=== PATIENT | female | born 1935 | race Caucasian/White ===

== ENCOUNTER 2016-10-30 19:29 | Inpatient (IN) | payer BC ==
[~2016-10-30] VITALS: Ht 165.1 cm; Wt 85.5 kg
[~2016-10-30 19:29] MED LIST: ACETAMINOPHEN-1 EAC1 PO; ALLOPURINOL100 MG PO; AMLODIPINE BESY10 MG PO; APRESOLINE100 MG PO; ARTIFICIAL TEAR1510 BOTH EYES; BUMETANIDE1 MG PO; CEFDINIR300 MG PO; CELEBREX200 MG PO; COLCRYS0.6 MG PO; COSOPT EYE DROPS5 ML BOTH EYES; DUONEB 2.5-0.5 M3 ML AEROSOL; ERGOCALCIF50000 UNIT PO; GEMFIBROZIL600 MG PO; HYTRIN10 MG PO; LETROZOLE2.5 MG PO; LEVOFLOXACIN500 MG PO; LOSARTAN POTASS25 MG PO; LOSARTAN-HCTZ1 EAC1 PO; METFORMIN HCL1000 MG PO; OMNICEF300 MG PO; PANTOPRAZOLE SO40 MG PO; PREDNISONE10 MG PO; PROMETHAZINE-C120 ML PO; PROTONIX40 MG PO; SERTRALINE HCL50 MG PO; SYMBICORT60 INHALA1 IH; SYMBICORT60 INHALAT IH; SYNTHROID88 MCG PO; TYLENOL EXTRA500 MG PO
[2016-10-30 19:57] LABS: HEMATOCRIT 32.1 % (36.0-46.0); MCH 30.1 PG (29.0-34.0); MCHC 33.3 G/DL (30.0-36.0); MCV 90.4 FL (83-99); MEAN PLAT.VOLUME 9.5 uM^3 (9.5-12.4); PLATELET COUNT 335 K/uL (156-360); RBC DIS.WIDTH-CV 14.4 % (11.8-14.6); RBC DIS.WIDTH-SD 48.2 % (39-53); RED BLOOD COUNT 3.55 M/uL (3.80-5.20); WHITE BLOOD COUNT 19.2 K/uL (4.1-10.2)
[2016-10-30 20:12] LABS: CHLORIDE 91 mEq/L (99-109); POTASSIUM 3.6 mEq/L (3.7-5.4); SODIUM 137 mEq/L (136-147)
[2016-10-30 20:13] LABS: GLUCOSE 122 mg/dL (70-99)
[2016-10-30 20:15] LABS: ANION GAP 17 MEQ/L (2-14)
[2016-10-30 20:17] LABS: GFR ESTIMATE (CALCULATED) 46 mL/min/
[2016-10-30 20:19] LABS: UREA NITROGEN (BUN) 37 mg/dL (9-23)
[2016-10-30 20:33] LABS: TROP-I INTERPRETATION NEGATIVE; TROPONIN-I < 0.01 ng/mL (0.0-0.30)
[2016-10-30 21:35] LABS: TOTAL BILIRUBIN 0.5 mg/dL (0.0-1.0)
[2016-10-30 21:36] LABS: ALKALINE PHOSPHATASE 127 IU/L (3-129)
[2016-10-30 21:49] LABS: EOSINOPHIL (%) 0.1 % (0-5); HEMATOCRIT 31.8 % (36.0-46.0); IMMATURE GRANULOCYTE (%) 0.6 % (0.0-0.7); IMMATURE GRANULOCYTE COUNT 0.1 K/uL; INSTRUMENT ABS NEUTROPHIL CT 13.7 K/uL; LYMPHOCYTE COUNT 3.4 K/uL (1.0-2.8); MCH 30.3 PG (29.0-34.0); MCHC 33.3 G/DL (30.0-36.0); MCV 90.9 FL (83-99); MEAN PLAT.VOLUME 9.8 uM^3 (9.5-12.4); MONOCYTE (%) 9.4 % (3-12); MONOCYTE COUNT 1.8 K/uL (0-0.8); NEUTROPHIL (%) 71.9 % (45-76); NEUTROPHIL COUNT 13.7 K/uL (1.8-6.4); PLATELET COUNT 341 K/uL (156-360); RBC DIS.WIDTH-CV 14.4 % (11.8-14.6); RBC DIS.WIDTH-SD 47.5 % (39-53)
[2016-10-31] MEDS ORDERED: APRESOLINE50 MG PO (00:07)
[2016-10-31] MEDS ORDERED: TYLENOL WITH C1 EACH PO (00:08)
[2016-10-31] MEDS ORDERED: XELODA500 MG PO (00:13)
[2016-10-31] MEDS ORDERED: KLOR-CON M1010 MEQ PO (00:13)
[2016-10-31] MEDS ORDERED: BUMETANIDE2 MG PO (00:14)
[2016-10-31] MEDS ORDERED: INCRUSE ELLI62.5 MCG IH (00:15)
[2016-10-31] MEDS ORDERED: ALLOPURINOL300 MG PO (00:15)
[2016-10-31] MEDS ORDERED: EDARBI40 MG PO (00:15)
[2016-10-31] MEDS ORDERED: BYSTOLIC5 MG PO (00:15)
[2016-10-31 01:40] VITALS: BP 129/60
[2016-10-31 05:51] LABS: POINT-OF-CARE METER ID UU13113725
[2016-10-31 11:50] LABS: POINT-OF-CARE METER ID UU13113725
[2016-10-31 17:07] LABS: POINT-OF-CARE METER ID UU13113725
[2016-10-31 18:15] VITALS: BP 136/62
[2016-10-31 23:15] VITALS: BP 114/58
[2016-11-01 06:41] LABS: PROTHROMBIN TIME 11.4 SEC (10.2-12.9)
[2016-11-01 08:56] VITALS: BP 152/75
[2016-11-01 12:06] VITALS: BP 150/75
[2016-11-01 13:56] LABS: TYPE OF FLUID THORACENTESIS
[2016-11-01 14:24] LABS: BODY FLUID LDH 311 IU/L; BODY FLUID PROTEIN 3.7 G/DL
[2016-11-01 14:29] LABS: BODY FLUID EOSINOPHILS 0 % (0-25); BODY FLUID RBC'S 3000 /MM^3 (0-100); BODY FLUID WBC'S 384 /MM^3 (0-500); MONONUCLEAR WBC'S 94 %; POLYNUCLEAR WBC'S 6 % (0-25)
[2016-11-01 15:01] LABS: GLUCOSE 121 mg/dL (70-99); LACTATE DEHYDROGENASE 156 IU/L (20-246)
[2016-11-01 16:24] VITALS: BP 156/77
[2016-11-01 19:45] VITALS: BP 148/75
[2016-11-01 23:33] VITALS: BP 139/68
[2016-11-02 03:34] VITALS: BP 127/60
[2016-11-02 08:20] VITALS: BP 173/80
[2016-11-02 12:24] VITALS: BP 139/73
[2016-11-02 16:26] VITALS: BP 160/76
[2016-11-02 20:22] VITALS: BP 133/69
[2016-11-02 23:09] VITALS: BP 178/74
[2016-11-03 07:05] VITALS: BP 177/88
[2016-11-03 11:00] VITALS: BP 136/72
[2016-11-03 14:00] VITALS: BP 137/90
[2016-11-03 15:40] VITALS: BP 141/87
[2016-11-03 21:10] LABS: POINT-OF-CARE METER ID UU13113725
[2016-11-03 23:20] VITALS: BP 127/78
[2016-11-04 06:47] LABS: POINT-OF-CARE METER ID UU13113725
[2016-11-04 07:05] VITALS: BP 139/76
[2016-11-04 11:31] LABS: POINT-OF-CARE METER ID UU13113725
[2016-11-04 16:24] VITALS: BP 133/75
[2016-11-04 16:27] LABS: POINT-OF-CARE METER ID UU13113725
[2016-11-04 23:40] VITALS: BP 138/71
[2016-11-05 00:38] VITALS: BP 128/64
[2016-11-05 07:34] VITALS: BP 146/74
[2016-11-05 15:16] VITALS: BP 121/63
[2016-11-05 23:29] VITALS: BP 166/84
[2016-11-06 07:06] LABS: POINT-OF-CARE METER ID UU13113725
[2016-11-06 07:10] VITALS: BP 140/65
[2016-11-06 15:30] VITALS: BP 116/56
[2016-11-06 23:15] VITALS: BP 137/67
[2016-11-07 08:31] VITALS: BP 114/68
[2016-11-07 15:58] VITALS: BP 113/60
[2016-11-07 21:51] VITALS: BP 107/57
[2016-11-07 23:21] VITALS: BP 110/59
[2016-11-08 08:28] VITALS: BP 134/70
[2016-11-08 11:44] LABS: POINT-OF-CARE METER ID UU13113725
[2016-11-08 15:51] VITALS: BP 112/61
[2016-11-08 16:25] LABS: POINT-OF-CARE METER ID UU13113725
[2016-11-08 21:13] LABS: POINT-OF-CARE METER ID UU13113725
[2016-11-08 22:52] VITALS: BP 100/59
[2016-11-09 07:17] LABS: POINT-OF-CARE METER ID UU13113725
[2016-11-09 08:00] VITALS: BP 120/66
[2016-11-09 11:20] VITALS: BP 111/68
[2016-11-09 22:37] VITALS: BP 130/73
[2016-11-10 06:28] LABS: POINT-OF-CARE METER ID UU13113725
[2016-11-10 08:13] VITALS: BP 132/70
[2016-11-10 11:38] LABS: POINT-OF-CARE METER ID UU13113725
[2016-11-10 15:54] VITALS: BP 108/57
[2016-11-10 16:32] LABS: POINT-OF-CARE METER ID UU13113725
[2016-11-10 19:33] VITALS: BP 101/55
[2016-11-10 21:06] LABS: POINT-OF-CARE METER ID UU13113725
[2016-11-10 22:44] VITALS: BP 139/72
[2016-11-11 07:05] VITALS: BP 121/69
[2016-11-11 12:23] LABS: POINT-OF-CARE METER ID UU13113725
[2016-11-11 15:10] VITALS: BP 103/57
[2016-11-11 16:34] LABS: POINT-OF-CARE METER ID UU13113725
[2016-11-11 22:01] LABS: POINT-OF-CARE METER ID UU13113725
[2016-11-12 00:14] VITALS: BP 113/60
[2016-11-12 06:02] LABS: POINT-OF-CARE METER ID UU13113725
[2016-11-12 07:19] VITALS: BP 127/69
[2016-11-12 15:10] VITALS: BP 126/72
[2016-11-12 21:47] VITALS: BP 126/68
[2016-11-12 23:32] VITALS: BP 123/66
[2016-11-13 07:06] LABS: POINT-OF-CARE METER ID UU13113725
[2016-11-13 07:38] VITALS: BP 117/71
[2016-11-13 11:43] LABS: POINT-OF-CARE METER ID UU13113725
[2016-11-13] MEDS ORDERED: LIDOCAINE1 EACH TD (14:01)
[2016-11-13] MEDS ORDERED: NOVOLOG PE100 UNITS/ SC (14:01)
[2016-11-13] MEDS ORDERED: DUONEB 2.5-0.5 M3 ML AEROSOL (14:01)
[2016-11-13] MEDS ORDERED: CEFDINIR300 MG PO (14:01)
[2016-11-13] MEDS ORDERED: PLAVIX75 MG PO (14:01)
[2016-11-13] MEDS ORDERED: TRAMADOL HCL50 MG PO (14:01)
== END 2016-11-13 16:07 | DRG 180 ==
LOC: EME → EDBD 19:29 → EME 19:29 → 5EAST 23:54 → EDOF 23:54 → ENRESERV 10-31 00:14 → 5EAST 10-31 01:17
PROVIDERS: Emergency Medicine; Internal Medicine; Internal Medicine Pulmonary Disease
PROC: 0W9930Z Drainage of Right Pleural Cavity with Drainage Device, Percutaneous Approach (ICD-10-PCS; principal; 2016-11-03)
DX: C78.00 Secondary malignant neoplasm of unspecified lung (principal); J91.0 Malignant pleural effusion; J44.0 Chronic obstructive pulmonary disease with (acute) lower respiratory infection; C79.51 Secondary malignant neoplasm of bone; J18.9 Pneumonia, unspecified organism; I44.0 Atrioventricular block, first degree; E86.0 Dehydration; J44.1 Chronic obstructive pulmonary disease with (acute) exacerbation; E87.70 Fluid overload, unspecified; I44.1 Atrioventricular block, second degree; R19.7 Diarrhea, unspecified; R53.1 Weakness; K21.9 Gastro-esophageal reflux disease without esophagitis; C50.919 Malignant neoplasm of unspecified site of unspecified female breast; E11.9 Type 2 diabetes mellitus without complications; M19.90 Unspecified osteoarthritis, unspecified site; I10 Essential (primary) hypertension; E78.5 Hyperlipidemia, unspecified; I44.7 Left bundle-branch block, unspecified; R09.02 Hypoxemia; Z51.5 Encounter for palliative care; E66.9 Obesity, unspecified; Z68.31 Body mass index [BMI] 31.0-31.9, adult; Z92.3 Personal history of irradiation; Z90.49 Acquired absence of other specified parts of digestive tract; Z96.651 Presence of right artificial knee joint
CPT/HCPCS: 32557; 36415; 71010; 71020; 76942; 80048; 80053; 80076; 82565; 82945; 82947; 82948; 83605; 83615; 83615 91; 83880; 84075 90; 84080 90; 84155; 84157; 84484; 84550; 85025; 85027; 85610; 85730; 87070; 87075; 87116; 87205; 87206; 88108; 88305; 88341 TC; 88342 TC; 89051; 93005; 94640; 94640 76; 94799; 97530 GO; 97530 GP; 99202; 99281; 99285; J0456; J0692; J1650; J1815; J1940; J2930; J3010; J3475; J7030; J7050; J7512